=== PATIENT | male | born 1960 | race African-American/Black ===

== ENCOUNTER 2019-11-23 13:09 | Inpatient (IN) | payer BC, OTHER ==
--- NOTE | 2019-11-23 13:24 | BHS.RME ---
Substance Use & Tx History - Substance Use History Heroin Substance amount: 2 bundles Frequency of use: Daily Substance route: Inhalation (ex: sniffing or snorting) Date of Last Use: 11/22/19 (started age 28) Cocaine-Crack Substance amount: 2 clips Frequency of use: Daily Substance route: Smoking Date of Last Use: 11/22/19 (started age 32) Nicotine Substance amount: 1 pack Frequency of use: Daily Substance route: Smoking Date of Last Use: 11/23/19 (started age 18) Physical/Psych/Mental Status - Behavior General Behavior: Increased activity (restlessness, agitation) Eye Contact: Normal - Cooperativeness Cooperativeness: Cooperative - Thinking Thought Processes: Tight - Physical Health Problems Is patient presently having any pain?: No Does patient presently have any injuries (include location): No Does patient currently have a fever: No Is patient : No COWS - Scale Resting Pulse: 1= DE 81-100 Sweatin=Flushed/Facial Moisture Restless Observation: 1= Difficult to Sit Still Pupil Size: 1= Pupils >than Normal Bone or Joint Aches: 2= Severe Diffuse Aches Runny Nose/ Eye Tearin= Runny Nose/Eyes GI Upset > 30mins: 1= Stomach Cramp Tremor Observation: 1= Tremor [place], Not Seen Yawning Observation: 1= 1-2x During Session Anxiety or Irritability: 1=Feels Anxious/Irritable Goose Flesh Skin: 3=Piloerection COWS Score: 16
[2019-11-23 15:24] VITALS: BMI 18.3
--- NOTE | 2019-11-23 15:32 | HP ---
COWS - Scale Resting Pulse: 1= MT 81-100 Sweatin=Flushed/Facial Moisture Restless Observation: 1= Difficult to Sit Still Pupil Size: 1= Pupils >than Normal Bone or Joint Aches: 2= Severe Diffuse Aches Runny Nose/ Eye Tearin= Runny Nose/Eyes GI Upset > 30mins: 1= Stomach Cramp Tremor Observation: 1= Tremor [place], Not Seen Yawning Observation: 1= 1-2x During Session Anxiety or Irritability: 1=Feels Anxious/Irritable Goose Flesh Skin: 3=Piloerection COWS Score: 16 CIWA Score - Admission Criteria [facility]ASAS Guidelines: Admission for Medically Managed Detox: Requires at least one of the followin. CIWA greater than 12 2. Seizures within the past 24 hours 3. Delirium tremens within the past 24 hours 4. Hallucinations within the past 24 hours 5. Acute intervention needed for co occurring medical disorder 6. Acute intervention needed for co occurring psychiatric disorder 7. Severe withdrawal that cannot be handled at a lower level of care (continued vomiting, continued diarrhea, abnormal vital signs) requiring intravenous medication and/or fluids 8. Admitting History and Physical - Admission Chief Complaint: Mr. Webster is a 59 yo man who presents to [facility] [place] requesting admission to detox for heroin use. History of Present Illness: Mr. Webster is a 59 yo man who presents to [facility] [place] requesting admission to detox for heroin use. This is his first visit to [facility] [place]. PMH: none PSH: none Psych: schizophrenia: trazodone, Remeron, risperdal SOC: homeless on the streets Legal: none ALL: none Substance Use History Heroin Substance amount: 2 bundles Frequency of use: Daily Substance route: Inhalation (ex: sniffing or snorting) Date of Last Use: 11/22/19 (started age 28) No hx of OD No Narcan at home Cocaine-Crack Substance amount: 2 clips Frequency of use: Daily Substance route: Smoking Date of Last Use: 11/22/19 (started age 32) Nicotine Substance amount: 1 pack Frequency of use: Daily Substance route: Smoking Date of Last Use: 11/23/19 (started age 18) Cannabis: began at age 18y, last smoked 2 days ago: one joint History Source: Patient Limitations to Obtaining History: No Limitations Admission ROS S - HPI Exam Limitations: No Limitations - Ebola screening Have you traveled outside of the country in the last 21 days: No Have you been sick,other than usual withdrawal symptoms: No Do you have a fever: No - Review of Systems Constitutional: Unintentional Wgt. Loss (40-50 lbs lost in 5 mos) EENT: reports: Nose Congestion Respiratory: reports: No Symptoms reported Cardiac: reports: No Symptoms Reported GI: reports: Nausea : reports: No Symptoms Reported Musculoskeletal: reports: Back Pain Integumentary: reports: No Symptoms Reported Neuro: reports: No Symptoms reported Endocrine: reports: No Symptoms Reported Hematology: reports: No Symptoms Reported Psychiatric: reports: Anxious Patient History - Smoking Cessation Smoking history: Current every day smoker Have you smoked in the past 12 months: Yes Aproximately how many cigarettes per day: 20 Hx Chewing Tobacco Use: No Initiated information on smoking cessation: Yes 'Breaking Loose' booklet given: 11/23/19 Admission Physical Exam [facility] - Vital Signs Vital Signs: Vital Signs - 24 hr 11/23/19 15:23 Temperature 98.1 F Pulse Rate 61 Respiratory 18 Rate Blood Pressure 114/78 - Physical General Appearance: Yes: Nourished, Appropriately Dressed, Thin, Anxious HEENTM: Yes: EOMI, Hearing grossly Normal, Normocephalic, Normal Voice Respiratory: Yes: Lungs Clear, No Respiratory Distress, No Accessory Muscle Use Neck: Yes: Within Normal Limits, Supple Breast: Yes: Breast Exam Deferred Cardiology: Yes: Regular Rhythm, Regular Rate Abdominal: Yes: Normal Bowel Sounds, Non Tender, Flat, Soft Genitourinary: Yes: Other (deferred) Back: Yes: Normal Inspection Musculoskeletal: Yes: Gait Steady Extremities: Yes: Normal Inspection, Non-Tender Neurological: Yes: Alert, Normal Response Integumentary: Yes: Normal Color, Dry, Warm - Diagnostic (1) Opioid withdrawal Current Visit: Yes Status: Acute (2) Cannabis dependence Current Visit: Yes Status: Acute (3) Nicotine dependence Current Visit: Yes Status: Acute Qualifiers: Nicotine product type: cigarettes Substance use status: uncomplicated Qualified Code(s): F17.210 - Nicotine dependence, cigarettes, uncomplicated (4) Schizophrenia Current Visit: Yes Status: Chronic Cleared for Admission [facility] - Detox or Rehab [facility] Level of Care: Medically Managed Detox Regimen/Protocol: Methadone Breathalyzer - Breathalyzer Breathalyzer: 0 Urine Drug Screen - Test Device Lot number: [id number] Expiration date: 05/24/21 - Control Is test valid?: Yes - Results Drug screen NEGATIVE: No Urine drug screen results: THC-Marijuana, HUNG-Cocaine, FEN-Fentanyl, MOP-Opiates Inpatient Rehab Admission - Rehab Decision to Admit Inpatient rehab admission?: No
[2019-11-23] MEDS ORDERED: BISMUTH SUBSALICYLATE 262 MG/15 ML BTL PO PRN (15:33)
[2019-11-23] MEDS ORDERED: MAG HYDROX/AL HYDROX/SIMETH 30 ML UNIT-DOSE CUP PO PRN (15:33)
[2019-11-23] MEDS ORDERED: METHADONE HCL 10 MG TABLET (FOR DETOX USE ONLY) PO ONE (15:33)
[2019-11-23] MEDS ORDERED: ONDANSETRON *ODT* 4 MG TABLET SL PRN (15:33)
[2019-11-23] MEDS ORDERED: cloNIDine HCL 0.1 MG TABLET PO PRN (15:33)
[2019-11-23] MEDS ORDERED: IBUPROFEN 400 MG TABLET (FP) PO PRN (15:33)
[2019-11-23] MEDS ORDERED: MAGNESIUM CITRATE 300 ML BOTTLE PO PRN (15:33)
[2019-11-23] MEDS ORDERED: MAGNESIUM HYDROX 2400MG/30ML ORAL SUSPENSION 30 ML CUP PO PRN (15:33)
[2019-11-23] MEDS ORDERED: NICOTINE POLACRILEX 2 MG GUM BUC PRN (15:33)
[2019-11-23] MEDS ORDERED: MENTHOL/PHENOL 1 EACH UD MM PRN (15:33)
[2019-11-23] MEDS ORDERED: ACETAMINOPHEN 325 MG TABLET (FP) PO PRN ×2 (15:33)
[2019-11-23] MEDS: NICOTINE 21 MG/24 HOURS TOPICAL PATCH TD SCH (17:07)
[2019-11-23 17:46] LABS: HEMATOCRIT 39.7 % (35.4-49); HEMOGLOBIN 12.5 GM/dL (11.7-16.9); MCH 23.4 pg (25.7-33.7); MCHC 31.6 g/dl (32.0-35.9); MEAN CELL VOLUME 74.1 fl (80-96); MEAN PLT VOLUME 8.4 fl (7.5-11.1); PLATELET COUNT 357 K/MM3 (134-434); RBC 5.35 M/mm3 (4.00-5.60); RDW 15.6 % (11.9-15.9); WHITE BLOOD COUNT 7.8 K/mm3 (4.0-10.0)
[2019-11-23 18:00] LABS: ALBUMIN 3.2 g/dl (3.4-5.0); BILIRUBIN,TOTAL 0.5 mg/dL (0.2-1); BLOOD UREA NITROGEN 13.5 mg/dL (7-18); CALCIUM 8.9 mg/dL (8.5-10.1); CREATININE 0.8 mg/dL (0.55-1.3); POTASSIUM 4.3 mmol/L (3.5-5.1); TOT PROT 7.7 g/dl (6.4-8.2)
[2019-11-23] MEDS: hydrOXYzine PAMOATE 25 MG CAPSULE (FP) PO SCH ×2 (18:35→23:00)
[2019-11-23] MEDS ORDERED: MELATONIN 5 MG TABLETS PO SCH (22:00)
[2019-11-23] MEDS ORDERED: THIAMINE HCL 100 MG TABLET (FP) PO SCH (22:00)
[2019-11-24] MEDS: METHOCARBAMOL 500 MG TABLET PO PRN ×2 (03:11→08:55)
[2019-11-24] MEDS: hydrOXYzine PAMOATE 25 MG CAPSULE (FP) PO SCH ×2 (07:18→11:00)
[2019-11-24] MEDS ORDERED: diazePAM 5 MG TABLET PO PRN (08:52)
[2019-11-24] MEDS ORDERED: METHADONE HCL 5 MG TABLET (FOR DETOX USE ONLY) ONE (08:53)
[2019-11-24] MEDS ORDERED: METHADONE HCL 10 MG TABLET (FOR DETOX USE ONLY) ONE (08:53)
[2019-11-24 09:45] VITALS: BP 138/75; PULSE 58; TEMP 98
[2019-11-24] MEDS ORDERED: METHADONE (DETOX) 20 MG, METHADONE (DETOX) 5 MG PO ONE (10:00)
[2019-11-24] MEDS ORDERED: PRENATAL VITAMINS W/ FOLIC ACID TABLET (FP) PO SCH (10:00)
--- NOTE | 2019-11-24 10:27 | CONSULT ---
[facility] Psychiatric Consult - Data Date of interview: 11/24/19 Identifying data: Mr Webster is a 59 years old single Black male, unemployed, living in a room seeking detox treatment for opioid, cocaine and cannabis Substance Abuse History: Reports history of heroin, crack cocaine and marijuana use. Refer to addiction counselor's summary for further information Medical History: Unremarkable. Smokes cigarettes 1 ppd Psychiatric History: This is patient's first admission to this facility. He reports that his first psychiatric contact occured between 1989 and 1999 while in correction because of auditory hallucinations and paranoid delusions. He said that he was diagnosed with Paranoid Schizophrenia and started on psychotropic medications. Reports that he currently sees a psychiatrist in [place], [place] and he is prescribed Risperdal 2 mg/hs, Trileptal 300 mg/hs, Remeron 15 mg/hs and Trazadone 100 mg/hs. Told specifications writer that he last took medications before his current admission. Reports one previous psychiatric hospitalization at [facility] in [place]. Denies previous suicidal atempt. At present, denies experiencing psychotic, manic or depressive symptoms, S/H ideations. However, reports sleeping poorly Physical/Sexual Abuse/Trauma History: Denies history of abuse as a child or DV relationship as an adult Mental Status Exam - Mental Status Exam Alert and Oriented to: Time, Place, Person Cognitive Function: Fair Patient Appearance: Well Groomed Mood: Hopeful, Euthymic Patient Behavior: Cooperative Speech Pattern: Clear Voice Loudness: Normal Thought Process: Intact, Goal Oriented Hallucinations: Denies Suicidal Ideation: Denies Homicidal Ideation: Denies Insight/Judgement: Poor Sleep: Poorly Appetite: Fair Muscle strength/Tone: Normal Gait/Station: Normal Psychiatric Findings - Problem List (Weed 1, 2,3) (1) Paranoid schizophrenia Current Visit: Yes Status: Chronic (2) Schizoaffective disorder Current Visit: Yes Status: Ruled-out (3) Substance-induced sleep disorder Current Visit: Yes Status: Acute (4) Uncomplicated opioid dependence Current Visit: Yes Status: Acute (5) Cocaine dependence Current Visit: Yes Status: Acute (6) Cannabis dependence Current Visit: Yes Status: Acute (7) Nicotine dependence Current Visit: Yes Status: Chronic Qualifiers: Nicotine product type: cigarettes Substance use status: uncomplicated Qualified Code(s): F17.210 - Nicotine dependence, cigarettes, uncomplicated - Initial Treatment Plan Initial Treatment Plan: 1) Continue Risperdal 2 mg po HS, Trileptal 300 mg po HS, Remeron 15 mg po HS and Trazadone 100 mg po HS. 2) Continue inpatient detoxification
[2019-11-24] MEDS ORDERED: hydrOXYzine PAMOATE 25 MG CAPSULE (FP) PO PRN (10:45)
--- NOTE | 2019-11-24 10:45 | PN ---
BHS COWS - Scale Resting Pulse: 0= DE 80 or Below Sweatin= Chills/Flushing Restless Observation: 1= Difficult to Sit Still Pupil Size: 0= Normal to Room Light Bone or Joint Aches: 2= Severe Diffuse Aches Runny Nose/ Eye Tearin= Nasal Congestion GI Upset > 30mins: 0= None Tremor Observation of Outstretched Hands: 1= Tremor [place], Not Seen Yawning Observation: 1= 1-2x During Session Anxiety or Irritability: 2=Irritable/Anxious Goose Flesh Skin: 0=Smooth Skin COWS Score: 9 BHS Progress Note (SOAP) Subjective: restless body aches nasal congestion teary eyes irritable Objective: 11/24/19 10:43 Vital Signs Temperature 98.0 F 11/24/19 08:53 Pulse Rate 58 L 11/24/19 08:53 Respiratory Rate 18 11/24/19 08:53 Blood Pressure 138/75 11/24/19 08:53 O2 Sat by Pulse Oximetry (%) 97 11/24/19 08:53 Laboratory Tests 11/23/19 11/23/19 11/23/19 15:40 15:40 18:13 WBC 7.8 RBC 5.35 Hgb 12.5 Hct 39.7 MCV 74.1 L MCH 23.4 L MCHC 31.6 L RDW 15.6 Plt Count 357 MPV 8.4 Sodium 141 Potassium 4.3 Chloride 106 Carbon Dioxide 32 Anion Gap 3 L BUN 13.5 Creatinine 0.8 Est GFR (CKD-EPI)AfAm 114.93 Est GFR (CKD-EPI)NonAf 99.16 POC Glucometer 141 Random Glucose 36 L* Calcium 8.9 Total Bilirubin 0.5 AST 70 H ALT 71 H Alkaline Phosphatase 81 Total Protein 7.7 Albumin 3.2 L labs noted repeat random glucose in am aaox3 ambulating no acute distress Assessment: 11/24/19 10:44 withdrawals Plan: continue detox increase fluids random glucose ordered for am
[2019-11-24] MEDS: NICOTINE 21 MG/24 HOURS TOPICAL PATCH TD SCH (10:59)
--- NOTE | 2019-11-24 11:17 | PN ---
[facility] Progress Note Note: pt was offered his medication at 9am to assist with his withdrawals and offered ancillary medication as well to assist with his withdrawals. Pt laid down and was resting. In about 30min later pt states I want to leave now I have things to do. Pt was made aware of the risks of relapse, seizures, DT, OD and or loss, pt chose to leave and signed out AMA.
--- NOTE | 2019-11-24 11:18 | DS ---
[facility] Detox Discharge Summary Admission Date: 11/23/19 - History Present History: Cannabis Dependence, Cocaine Dependence, Opioid Dependence - Physical Exam Results Vital Signs: Vital Signs Temperature 98.0 F 11/24/19 08:53 Pulse Rate 58 L 11/24/19 08:53 Respiratory Rate 18 11/24/19 08:53 Blood Pressure 138/75 11/24/19 08:53 O2 Sat by Pulse Oximetry (%) 97 11/24/19 08:53 Pertinent Admission Physical Exam Findings: Vital Signs Temperature 98.0 F 11/24/19 08:53 Pulse Rate 58 L 11/24/19 08:53 Respiratory Rate 18 11/24/19 08:53 Blood Pressure 138/75 11/24/19 08:53 O2 Sat by Pulse Oximetry (%) 97 11/24/19 08:53 Laboratory Tests 11/23/19 11/23/19 11/23/19 15:40 15:40 18:13 WBC 7.8 RBC 5.35 Hgb 12.5 Hct 39.7 MCV 74.1 L MCH 23.4 L MCHC 31.6 L RDW 15.6 Plt Count 357 MPV 8.4 Sodium 141 Potassium 4.3 Chloride 106 Carbon Dioxide 32 Anion Gap 3 L BUN 13.5 Creatinine 0.8 Est GFR (CKD-EPI)AfAm 114.93 Est GFR (CKD-EPI)NonAf 99.16 POC Glucometer 141 Random Glucose 36 L* Calcium 8.9 Total Bilirubin 0.5 AST 70 H ALT 71 H Alkaline Phosphatase 81 Total Protein 7.7 Albumin 3.2 L aaox3 ambulating pt signed out AMA. - Treatment Patient has Accepted a Rehab Referral to: pt declined referrals - Medication Discharge Medications: Ambulatory Orders Mirtazapine [Remeron -] 15 mg PO HS 11/23/19 Oxcarbazepine [Trileptal -] 300 mg PO HS 11/23/19 Risperidone [Risperdal] 2 mg PO HS 11/23/19 traZODone HCL [Trazodone HCl] 100 mg PO HS 11/23/19 - AMA Did Patient Leave Against Medical Advice: Yes
--- NOTE | 2019-11-24 13:27 | EKG ---
Test Reason : Blood Pressure : / mmHG Vent. Rate : 062 BPM Atrial Rate : 062 BPM P-R Int : 124 ms QRS Dur : 074 ms QT Int : 440 ms P-R-T Axes : 080 002 -46 degrees QTc Int : 446 ms NORMAL SINUS RHYTHM NORMAL ECG NO PREVIOUS ECGS AVAILABLE Confirmed by NICOLAS GOODMAN MD ([id number]) on 11/24/2019 1:27:35 PM Referred By: Confirmed By:NICOLAS GOODMAN MD
[2019-11-24] MEDS ORDERED: traZODone HCL 100 MG TABLET (FP) PO SCH (22:00)
[2019-11-24] MEDS ORDERED: risperiDONE 2 MG TABLET PO SCH (22:00)
[2019-11-24] MEDS ORDERED: OXcarbazepine 300 MG TABLET (UD) PO SCH (22:00)
[2019-11-24] MEDS ORDERED: MIRTAZAPINE 15 MG TABLET (FP) PO SCH (22:00)
[2019-11-25] MEDS ORDERED: METHADONE HCL 10 MG TABLET (FOR DETOX USE ONLY) PO ONE (10:00)
[2019-11-26] MEDS ORDERED: METHADONE (DETOX) 10 MG, METHADONE (DETOX) 5 MG PO ONE (10:00)
[2019-11-27] MEDS ORDERED: METHADONE HCL 10 MG TABLET (FOR DETOX USE ONLY) PO ONE (10:00)
[2019-11-28] MEDS ORDERED: METHADONE HCL 5 MG TABLET (FOR DETOX USE ONLY) PO ONE (06:00)
== END 2019-11-24 11:05 | disposition left against medical advice (07) | DRG 894 ==
LOC: YASAS 13:09 → Y6N 15:31
PROVIDERS: ADMIT Allergy & Immunology; ATTEND Allergy & Immunology
PROC: HZ2ZZZZ Detoxification Services for Substance Abuse Treatment (ICD-10-PCS; principal; 2019-11-23)
DX: F11.23 Opioid dependence with withdrawal (principal); F14.20 Cocaine dependence, uncomplicated; F19.282 Other psychoactive substance dependence with psychoactive substance-induced sleep disorder; F20.0 Paranoid schizophrenia; Z68.1 Body mass index [BMI] 19.9 or less, adult; F12.20 Cannabis dependence, uncomplicated; F17.210 Nicotine dependence, cigarettes, uncomplicated; R63.4 Abnormal weight loss; Z56.0 Unemployment, unspecified
CPT/HCPCS: 36415; 80053; 82962; 85027; 86780; 93005; 93010; C9803; Q0162; U0003

== ENCOUNTER 2020-08-09 11:53 | Inpatient (IN) | payer OTHER ==
[2020-08-09 14:40] VITALS: BMI 21.2
[2020-08-09] MEDS ORDERED: METHOCARBAMOL 500 MG TABLET PO PRN (14:40)
[2020-08-09] MEDS ORDERED: cloNIDine HCL 0.1 MG TABLET PO PRN (14:40)
[2020-08-09] MEDS ORDERED: ONDANSETRON *ODT* 4 MG TABLET SL PRN (14:40)
[2020-08-09] MEDS ORDERED: ACETAMINOPHEN 325 MG TABLET (FP) PO PRN ×2 (14:40)
[2020-08-09] MEDS ORDERED: MAGNESIUM CITRATE 300 ML BOTTLE PO PRN (14:40)
[2020-08-09] MEDS ORDERED: MAGNESIUM HYDROX 2400MG/30ML ORAL SUSPENSION 30 ML CUP PO PRN (14:40)
[2020-08-09] MEDS ORDERED: IBUPROFEN 400 MG TABLET (FP) PO PRN (14:40)
[2020-08-09] MEDS ORDERED: NICOTINE POLACRILEX 2 MG GUM BUC PRN (14:40)
[2020-08-09] MEDS ORDERED: BISMUTH SUBSALICYLATE 524 MG/30 ML PO PRN (14:40)
[2020-08-09] MEDS ORDERED: MENTHOL/PHENOL 1 EACH UD MM PRN (14:40)
[2020-08-09] MEDS ORDERED: MAG HYDROX/AL HYDROX/SIMETH 30 ML UNIT-DOSE CUP PO PRN (14:40)
[2020-08-09] MEDS ORDERED: METHADONE HCL 10 MG TABLET (FOR DETOX USE ONLY) PO ONE (15:00)
[2020-08-09] MEDS: PRENATAL VITAMINS W/ FOLIC ACID TABLET (FP) PO SCH (18:11)
[2020-08-09] MEDS: NICOTINE 21 MG/24 HOURS TOPICAL PATCH TD SCH (18:13)
[2020-08-09] MEDS: hydrOXYzine PAMOATE 25 MG CAPSULE (FP) PO SCH ×2 (18:13→22:31)
[2020-08-09] MEDS ORDERED: MELATONIN 5 MG TABLETS PO SCH (22:00)
[2020-08-09] MEDS: THIAMINE HCL 100 MG TABLET (FP) PO SCH (22:31)
[2020-08-10] MEDS: hydrOXYzine PAMOATE 25 MG CAPSULE (FP) PO SCH ×5 (07:21→23:09)
[2020-08-10] MEDS ORDERED: METHADONE HCL 5 MG TABLET (FOR DETOX USE ONLY) ONE (09:15)
[2020-08-10] MEDS ORDERED: METHADONE HCL 10 MG TABLET (FOR DETOX USE ONLY) ONE (09:15)
[2020-08-10] MEDS: PRENATAL VITAMINS W/ FOLIC ACID TABLET (FP) PO SCH (09:45)
[2020-08-10] MEDS: NICOTINE 21 MG/24 HOURS TOPICAL PATCH TD SCH (09:46)
[2020-08-10] MEDS ORDERED: METHADONE (DETOX) 20 MG, METHADONE (DETOX) 5 MG PO ONE (10:00)
[2020-08-10 11:18] LABS: BLOOD UREA NITROGEN 30.6 mg/dL (7-18); CALCIUM 9.5 mg/dL (8.5-10.1)
[2020-08-10 11:21] LABS: ALBUMIN 3.9 g/dl (3.4-5.0)
[2020-08-10 11:22] LABS: BILIRUBIN,TOTAL 0.6 mg/dL (0.2-1); CREATININE 1.3 mg/dL (0.55-1.3)
[2020-08-10 11:23] LABS: TOT PROT 8.2 g/dl (6.4-8.2)
[2020-08-10 11:42] LABS: HEMATOCRIT 33.5 % (35.4-49); HEMOGLOBIN 10.2 GM/dL (11.7-16.9); MCH 22.7 pg (25.7-33.7); MCHC 30.5 g/dl (32.0-35.9); MEAN CELL VOLUME 74.5 fl (80-96); MEAN PLT VOLUME 8.7 fl (7.5-11.1); PLATELET COUNT 384 10^3/uL (134-434); RBC 4.49 M/mm3 (4.00-5.60); RDW 16.1 % (11.9-15.9); WHITE BLOOD COUNT 15.4 K/mm3 (4.0-10.0)
[2020-08-10] MEDS: risperiDONE 2 MG TABLET PO SCH (23:08)
[2020-08-10] MEDS: MIRTAZAPINE 15 MG TABLET (FP) PO SCH (23:08)
[2020-08-10] MEDS: traZODone HCL 100 MG TABLET (FP) PO SCH (23:08)
[2020-08-10] MEDS: OXcarbazepine 300 MG TABLET (UD) PO SCH (23:09)
[2020-08-10] MEDS: THIAMINE HCL 100 MG TABLET (FP) PO SCH (23:09)
[2020-08-11] MEDS: hydrOXYzine PAMOATE 25 MG CAPSULE (FP) PO SCH ×5 (07:13→23:19)
[2020-08-11] MEDS ORDERED: METHADONE HCL 10 MG TABLET (FOR DETOX USE ONLY) PO ONE (10:00)
[2020-08-11] MEDS: PRENATAL VITAMINS W/ FOLIC ACID TABLET (FP) PO SCH (11:06)
[2020-08-11] MEDS: NICOTINE 21 MG/24 HOURS TOPICAL PATCH TD SCH ×2 (11:07→11:12)
[2020-08-11] MEDS: FERROUS SO4 325 MG TABLET (FP) PO SCH (18:17)
[2020-08-11] MEDS: traZODone HCL 100 MG TABLET (FP) PO SCH (23:19)
[2020-08-11] MEDS: risperiDONE 2 MG TABLET PO SCH (23:19)
[2020-08-11] MEDS: MIRTAZAPINE 15 MG TABLET (FP) PO SCH (23:19)
[2020-08-11] MEDS: THIAMINE HCL 100 MG TABLET (FP) PO SCH (23:19)
[2020-08-11] MEDS: OXcarbazepine 300 MG TABLET (UD) PO SCH (23:19)
[2020-08-12] MEDS: hydrOXYzine PAMOATE 25 MG CAPSULE (FP) PO SCH ×5 (07:01→22:49)
[2020-08-12] MEDS: FERROUS SO4 325 MG TABLET (FP) PO SCH ×3 (07:01→17:58)
[2020-08-12 09:28] LABS: BASO % 0.3 % (0-2.0); EOS % 7.8 % (0-4.5); HEMATOCRIT 30.4 % (35.4-49); HEMOGLOBIN 9.8 GM/dL (11.7-16.9); LYMPH % 30.5 % (8-40); MCH 23.5 pg (25.7-33.7); MCHC 32.4 g/dl (32.0-35.9); MEAN CELL VOLUME 72.7 fl (80-96); MEAN PLT VOLUME 7.7 fl (7.5-11.1); MONO % 15.3 % (3.8-10.2); NEUT % 46.1 % (42.8-82.8); PLATELET COUNT 307 10^3/uL (134-434); RBC 4.18 M/mm3 (4.00-5.60); RDW 15.8 % (11.9-15.9); WHITE BLOOD COUNT 6.4 K/mm3 (4.0-10.0)
[2020-08-12] MEDS ORDERED: METHADONE HCL 10 MG TABLET (FOR DETOX USE ONLY) ONE (09:51)
[2020-08-12] MEDS ORDERED: METHADONE HCL 5 MG TABLET (FOR DETOX USE ONLY) ONE (09:51)
[2020-08-12 09:56] LABS: BLOOD UREA NITROGEN 12.9 mg/dL (7-18); CALCIUM 8.9 mg/dL (8.5-10.1)
[2020-08-12 10:00] LABS: CREATININE 0.9 mg/dL (0.55-1.3)
[2020-08-12] MEDS ORDERED: METHADONE (DETOX) 10 MG, METHADONE (DETOX) 5 MG PO ONE (10:00)
[2020-08-12] MEDS: PRENATAL VITAMINS W/ FOLIC ACID TABLET (FP) PO SCH (11:02)
[2020-08-12] MEDS: NICOTINE 21 MG/24 HOURS TOPICAL PATCH TD SCH (11:02)
[2020-08-12 11:35] LABS: ANISOCYTOSIS 1+; MACROCYTOSIS 1+; PLATELET ESTIMATE NORMAL
[2020-08-12] MEDS: risperiDONE 2 MG TABLET PO SCH (22:48)
[2020-08-12] MEDS: MIRTAZAPINE 15 MG TABLET (FP) PO SCH (22:48)
[2020-08-12] MEDS: traZODone HCL 100 MG TABLET (FP) PO SCH (22:48)
[2020-08-12] MEDS: THIAMINE HCL 100 MG TABLET (FP) PO SCH (22:49)
[2020-08-12] MEDS: OXcarbazepine 300 MG TABLET (UD) PO SCH (23:30)
[2020-08-13] MEDS: hydrOXYzine PAMOATE 25 MG CAPSULE (FP) PO SCH ×5 (06:29→22:47)
[2020-08-13] MEDS: FERROUS SO4 325 MG TABLET (FP) PO SCH ×3 (07:00→17:30)
[2020-08-13] MEDS ORDERED: METHADONE HCL 10 MG TABLET (FOR DETOX USE ONLY) PO ONE (10:00)
[2020-08-13] MEDS: NICOTINE 21 MG/24 HOURS TOPICAL PATCH TD SCH (10:25)
[2020-08-13] MEDS: PRENATAL VITAMINS W/ FOLIC ACID TABLET (FP) PO SCH (10:25)
[2020-08-13] MEDS: OXcarbazepine 300 MG TABLET (UD) PO SCH (22:46)
[2020-08-13] MEDS: traZODone HCL 100 MG TABLET (FP) PO SCH (22:46)
[2020-08-13] MEDS: risperiDONE 2 MG TABLET PO SCH (22:46)
[2020-08-13] MEDS: MIRTAZAPINE 15 MG TABLET (FP) PO SCH (22:46)
[2020-08-13] MEDS: THIAMINE HCL 100 MG TABLET (FP) PO SCH (22:46)
[2020-08-14] MEDS ORDERED: METHADONE HCL 5 MG TABLET (FOR DETOX USE ONLY) PO ONE (06:00)
[2020-08-14] MEDS: hydrOXYzine PAMOATE 25 MG CAPSULE (FP) PO SCH (06:06)
[2020-08-14] MEDS: FERROUS SO4 325 MG TABLET (FP) PO SCH (08:10)
[2020-08-14 09:43] VITALS: BP 124/75; PULSE 100; TEMP 98.1
== END 2020-08-14 09:38 | disposition home or self-care (01) | DRG 773 ==
LOC: YASAS 11:53 → Y3N 15:31 → Y6N 15:53
PROVIDERS: ADMIT Allergy & Immunology; ATTEND Allergy & Immunology
PROC: HZ2ZZZZ Detoxification Services for Substance Abuse Treatment (ICD-10-PCS; principal; 2020-08-09)
DX: F11.23 Opioid dependence with withdrawal (principal); F14.20 Cocaine dependence, uncomplicated; F12.20 Cannabis dependence, uncomplicated; F17.210 Nicotine dependence, cigarettes, uncomplicated; F19.282 Other psychoactive substance dependence with psychoactive substance-induced sleep disorder; F20.9 Schizophrenia, unspecified; U07.1 COVID-19; D50.9 Iron deficiency anemia, unspecified; D72.829 Elevated white blood cell count, unspecified; R74.8 Abnormal levels of other serum enzymes; R79.89 Other specified abnormal findings of blood chemistry; Z56.0 Unemployment, unspecified; Z59.0 Homelessness
CPT/HCPCS: 36415; 80048; 80053; 85025; 85027; 86780; C9803; U0003; U0005

== ENCOUNTER 2020-08-20 14:18 | Inpatient (IN) | payer OTHER ==
[2020-08-20 15:04] VITALS: BMI 18.1
[2020-08-20] MEDS ORDERED: ACETAMINOPHEN 325 MG TABLET (FP) PO PRN ×2 (16:12)
[2020-08-20] MEDS ORDERED: MAG HYDROX/AL HYDROX/SIMETH 30 ML UNIT-DOSE CUP PO PRN (16:12)
[2020-08-20] MEDS ORDERED: MENTHOL/PHENOL 1 EACH UD MM PRN (16:12)
[2020-08-20] MEDS ORDERED: METHOCARBAMOL 500 MG TABLET PO PRN (16:12)
[2020-08-20] MEDS ORDERED: IBUPROFEN 400 MG TABLET (FP) PO PRN (16:12)
[2020-08-20] MEDS ORDERED: MAGNESIUM CITRATE 300 ML BOTTLE PO PRN (16:12)
[2020-08-20] MEDS ORDERED: NICOTINE POLACRILEX 2 MG GUM BUC PRN (16:12)
[2020-08-20] MEDS ORDERED: BISMUTH SUBSALICYLATE 524 MG/30 ML PO PRN (16:12)
[2020-08-20] MEDS ORDERED: MAGNESIUM HYDROX 2400MG/30ML ORAL SUSPENSION 30 ML CUP PO PRN (16:12)
[2020-08-20] MEDS ORDERED: ONDANSETRON *ODT* 4 MG TABLET SL PRN (16:12)
[2020-08-20] MEDS ORDERED: NICOTINE 14 MG/24 HOURS TOPICAL PATCH TD SCH (16:15)
[2020-08-20] MEDS ORDERED: PRENATAL VITAMINS W/ FOLIC ACID TABLET (FP) PO SCH (16:15)
[2020-08-20] MEDS ORDERED: PNEUMOC 13-VAL CONJ-DIP CRM/PF 0.5 ML DISP.SYRIN IM ONE (16:16)
[2020-08-20] MEDS ORDERED: hydrOXYzine PAMOATE 25 MG CAPSULE (FP) PO SCH (18:00)
[2020-08-20 19:06] VITALS: BP 130/74; PULSE 69; TEMP 98.1
[2020-08-20] MEDS ORDERED: THIAMINE HCL 100 MG TABLET (FP) PO SCH (22:00)
[2020-08-20] MEDS ORDERED: MELATONIN 5 MG TABLETS PO SCH (22:00)
[2020-08-21] MEDS ORDERED: PNEUMOCOCCAL 23 VACCINE 0.5 ML VIAL IM ONE (12:00)
== END 2020-08-20 19:10 | disposition left against medical advice (07) | DRG 770 ==
LOC: YASAS 14:18 → Y6N 16:22
PROVIDERS: ADMIT Allergy & Immunology; ATTEND Allergy & Immunology
PROC: HZ2ZZZZ Detoxification Services for Substance Abuse Treatment (ICD-10-PCS; principal; 2020-08-20)
DX: F11.23 Opioid dependence with withdrawal (principal); F14.20 Cocaine dependence, uncomplicated; F17.210 Nicotine dependence, cigarettes, uncomplicated; F20.9 Schizophrenia, unspecified; U07.1 COVID-19; Z59.0 Homelessness
CPT/HCPCS: C9803; U0003; U0005